=== PATIENT | male | born 1970 | race African-American/Black ===

== ENCOUNTER 2018-12-05 04:29 | Emergency (ER) | payer SELFPAY ==
[~2018-12-05] VITALS: Ht 185.4 cm; Wt 132.0 kg
[2018-12-05 08:19] LABS: BASOPHILS % 0.7 % (0.0-2.0); EOSINOPHILS % 5.3 % (0.0-5.0); HEMATOCRIT. 40.2 % (42.0-52.0); HEMOGLOBIN. 13.8 g/dL (14.0-18.0); LYMPHOCYTES % 30.7 % (20.0-50.0); MEAN CORPUSCULAR HEMOGLOBIN 31.2 pg (28.0-32.0); MEAN CORPUSCULAR VOLUME 90.7 fL (80.0-94.0); MEAN PLATELET VOLUME 9.4 fl (7.4-10.4); MONOCYTES % 13.8 % (2.0-8.0); NEUTROPHILS % 49.5 % (40.0-76.0); PLATELET 168 x1000/uL (130-400); RED BLOOD CELL COUNT 4.44 mill/uL (4.7-6.1); RED CELL DISTRIBUTION WIDTH 13.9 % (11.6-14.6)
[2018-12-05 08:48] LABS: CHLORIDE 105 mEq/L (98-107)
[2018-12-05 10:31] VITALS: BP 120/87
== END 2018-12-05 10:45 | disposition home or self-care (01) ==
LOC: ER 04:29
DX: R07.89 Other chest pain (principal); F15.10 Other stimulant abuse, uncomplicated; F14.10 Cocaine abuse, uncomplicated; F10.10 Alcohol abuse, uncomplicated; Y90.9 Presence of alcohol in blood, level not specified
CPT/HCPCS: 36415; 71045; 80053; 84484; 85025; 93005; 99284; Z7610